=== PATIENT | male | born 1940 | race Caucasian/White ===

== ENCOUNTER → 2016-11-23 | Day surgery (SDC) | payer MEDICARE ==
[~2016-11-23] MED LIST: ACETAMINOPHEN 1000 MG/100 ML VIAL IV ONE; BUPIVACAINE/EPINEPHRINE 0.25% PF 10 ML VIAL ONE; BUPIVACAINE/EPINEPHRINE 0.5% PF 10 ML VIAL ONE; COQ150CA OR; KETOROLAC TROMETHAMINE 30 MG/ML (IVP) VIAL IV PUSH ONE; LACTATED RINGER'S 1000 ML INJ 1,000 ML ONE; MIDAZOLAM HCL 2 MG/2 ML VIAL ONE; ONDANSETRON HCL 4 MG/2 ML VIAL IV PUSH ONE; PROPOFOL 200 MG/20 ML AMP IV ONE; VITA400C28 PO; ceFAZolin 2 GM PREMIX 50 ML ONE
--- NOTE | 2016-11-23 10:31 | TN ---
cc: GAB LANDRY MD DATE OF PROCEDURE: 11/23/2016 PREOPERATIVE DIAGNOSIS Recurrent right inguinal hernia. POSTOPERATIVE DIAGNOSIS: Recurrent right inguinal hernia. PROCEDURE Laparoscopic repair of recurrent right inguinal hernia with mesh. SURGEON Gab Landry MD. [employer]IDENT OF [place]: Staff. SPECIMENS: None. ESTIMATED BLOOD LOSS: 5 cc. COMPLICATIONS None apparent. OPERATIVE FINDINGS The patient had a large indirect inguinal hernia. This was fully reduced. Ultra Prolite mesh was cut to 12 x 15 cm size. PROCEDURE IN DETAIL The patient was taken to the operating room, placed in supine position. General endotracheal anesthesia was induced. The abdomen was prepped and draped in usual sterile fashion. Surgical time-out was performed to verify correct patient, procedure and site. Appropriate perioperative antibiotics were administered. Local anesthetic was injected skin and subcutaneous tissue inferior to the umbilicus and 1 cm transverse incision made. Dissection carried out down to the underlying fascia to the right of midline and a 1 cm vertical incision made in the anterior rectus sheath. The plane posterior to the right rectus muscle was developed bluntly and the dissecting balloon placed down to the pubis. The extraperitoneal space was then created by insufflating the balloon. This was then removed and the structural balloon placed in the extraperitoneal space insufflated to 11 mmHg with CO2 gas. Cortez's ligament and epigastric vessels were identified as landmarks. A 5 mm port was placed in the suprapubic region and in the lower midline. Attention was then turned to the right inguinal area. The lateral space was developed taking care to avoid the lateral nerves. The patient has fairly large indirect inguinal hernia. Peritoneum was reduced from the indirect space and also along laterally and medially where the peritoneum was encroaching towards the inguinal floor. Two holes in the peritoneum were inadvertently created. One was closed with a 0-PDS Endoloop and one with multiple 5 mm clips. Once the hernia was fully reduced, and the distal floor was again visualized Cortez's ligament was visible. There was no evidence of direct or femoral hernias. The spermatic cord and lateral space were well dissected. A piece of Ultra pro 15 x 15 cm mesh was cut to 12 x 15 cm. This was placed into the right inguinal space. The entire inguinal floor was covered. It was secured at Cortez's ligament superior and superior laterally, superiorly lateral to the epigastric vessels and superiorly and medially at the rectus muscle. There is complete coverage of the floor in the peritoneum was made to lay above the mesh as the space was desufflated. The anterior fascia at the larger port site was closed with running 0 Vicryl suture. Skin closed with subcuticular 4-0 Monocryl and Dermabond. The patient tolerated procedure well as extend taken to PACU in stable condition. MD EDWIN Hannah/tonny /9:58 AM /10:19 AM
== END | disposition home or self-care (01) ==
LOC: ESDC 06:47
PROVIDERS: ATTEND Surgery
DX: K40.91 Unilateral inguinal hernia, without obstruction or gangrene, recurrent (principal)
CPT/HCPCS: C1727; C1781; J0131; J0690; J1885; J2250; J2405; J3010; J7120

== ENCOUNTER 2017-07-29 13:37 | Emergency (ER) | payer OTHER, MEDICARE ==
[~2017-07-29 13:37] MED LIST changes: -ACETAMINOPHEN 1000 MG/100 ML VIAL IV ONE; -BUPIVACAINE/EPINEPHRINE 0.25% PF 10 ML VIAL ONE; -BUPIVACAINE/EPINEPHRINE 0.5% PF 10 ML VIAL ONE; -KETOROLAC TROMETHAMINE 30 MG/ML (IVP) VIAL IV PUSH ONE; -LACTATED RINGER'S 1000 ML INJ 1,000 ML ONE; -MIDAZOLAM HCL 2 MG/2 ML VIAL ONE; -ONDANSETRON HCL 4 MG/2 ML VIAL IV PUSH ONE; -PROPOFOL 200 MG/20 ML AMP IV ONE; -ceFAZolin 2 GM PREMIX 50 ML ONE
[2017-07-29 13:39] VITALS: BP 191/84; PULSE 87; RESP 13; TEMP 98.4; O2SAT 98
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
== END 2017-07-29 16:01 | disposition home or self-care (01) ==
LOC: NEPK 13:37
DX: S40.012A Contusion of left shoulder, initial encounter (principal); S40.212A Abrasion of left shoulder, initial encounter; I10 Essential (primary) hypertension; V43.52XA Car driver injured in collision with other type car in traffic accident, initial encounter
CPT/HCPCS: 73030; 99283